=== PATIENT | male | born 1990 | race Caucasian/White ===

== ENCOUNTER 2021-12-30 14:54 | Emergency (ER) | payer OTHER, SELFPAY ==
[2021-12-30 15:09] VITALS: BP 142/89; PULSE 80; TEMP 36.7; O2SAT 98
[2021-12-30 15:12] VITALS: BP 142/89; PULSE 88; RESP 16; TEMP 36.7; O2SAT 98
[2021-12-30] MEDS: LORazepam 0.5 MG TAB 1.5 MG PO (15:45)
--- NOTE | 2021-12-30 15:47 | ED.GENADUL_ITS ---
Discharge Plan Disposition Patient Disposition: HOME Condition: Stable Discharge Details Clinical Impression: Anxiety Primary Care Provider: Unknown,Unknown ED Provider: Lucie Byrd Home Meds and New Rx's Prescriptions: No Action venlafaxine [Effexor XR] 150 mg Capsule,Extended Release 24hr 150 mg PO DAILY bupropion HCl [Wellbutrin XL] 150 mg Tablet Extended Release 24 Hr 150 mg PO DAILY Discharge Instructions Instructions: Lorazepam (By mouth), Anxiety (ED) Additional Instructions: Take one tablet every 8 hours as needed for anxiety. Do not drive or operate heavy machinery while taking this medication. Keep your appointment tomorrow as previously scheduled. Discharge Data Discharge Date/Time-TO BE ENTERED AT DEPARTURE: 12/30/21 16:13 Medical Decision Making 31-year-old male presents to the ER with a chief complaint of anxiety. He denies any SI or HI. He does take Wellbutrin and Effexor. He reports he has a PCP appointment tomorrow. 0.5 mg of lorazepam was given to the patient x3 tablets as needed for anxiety and panic attacks. He denies any other symptoms no abdominal pain no chest pain or shortness of breath no nausea vomiting diarrhea no fever. This text was generated using [employer] system, please disregard any oddities of phrase or misspellings. HPI General Mode of arrival: ambulatory . Date/Time Provider Initiated Documentation: 12/30/21 15:36 . Limitations to Documentation: no limitations . Information obtained by: patient, family, RN notes reviewed and old records reviewed . HPI Narrative: 31 year old male with hx of anxiety presents with increased Panic attacks, takes Wellbutrin and effexor. Denies HI or SI, no other c/o. Has PCP appt tomorrow. Related Data Home Medications Medication Instructions Recorded Confirmed bupropion HCl 150 mg 24 hr tablet, 150 mg PO DAILY 12/30/21 12/30/21 extended release (Wellbutrin XL) venlafaxine 150 mg 150 mg PO DAILY 12/30/21 12/30/21 capsule,extended release 24 hr (Effexor XR) Allergies Allergy/AdvReac Type Severity Reaction Status Date / Time No Known Allergies Allergy Unverified 12/30/21 15:17 General Stated Complaint: Anxiety NICA: 3 Review of Systems All systems reviewed & are unremarkable except as noted in HPI and below Cardiovascular Cardiovascular: Denies chest pain Gastrointestinal Gastrointestinal: Denies abdominal pain, Denies diarrhea, Denies nausea and Denies vomiting Psychiatric Psychiatric: Reports as per HPI, Reports anxiety, Reports panic attacks, Denies homicidal ideation and Denies suicidal ideation PFSH All Active Problems Anxiety (Chronic) Social History Smoking/Tobacco Use Status: Current every day Tobacco Type: cigarettes Smoking risk assessment performed?: Yes Drug use: Daily Substance use type: marijuana Exam Narrative Exam Narrative: Constitutional: Alert and oriented x3. Appears stated age. Normal body habitus. Head: Normocephalic, no trauma. Eyes: Pupils PERRL, Red reflex noted, EOM's intact. Eyelids symmetrical without lesions, discharge, or swelling. ENT: Bilateral TM's WNL, External ear normal to inspection, no mastoid TTP, swelling, or erythema, Nasal turbinates WNL, no nasal discharge. Normal dentition, Posterior pharynx WNL, no exudate. Chest: RRR, Normal S1, S2, distal pulses intact. Resp: Lungs clear to auscultation bilaterally, no wheezes, rales, or rhonchi. Abdomen: Soft, non-distended, Normoactive bowel sounds all 4 quads. Musculoskeletal: Normal gait, 5/5 strength to all four extremities. Skin: No suspicious rashes or lesions. Capillary refill less than 2 sec. Neurologic: Cranial nerves II-XII intact. Alert and oriented x 3. Motor: No deficits noted. Sensory: Intact bilaterally all 4 extremities. Reflexes: DTR's intact bilaterally.. Hematologic/Lymphatic: No ecchymosis, no lymphadenopathy. Psych Appearance: well kempt Mental Status: mental status grossly normal Speech and Movement: speech and movement normal Affect: normal affect Attitude: cooperative Thought Process: normal Thought Content: normal Insight: insight good Judgment: judgment good Course Vital Signs Vital signs: Vital Signs Temperature 36.7 C 12/30/21 15:09 Pulse 80 12/30/21 15:09 Blood Pressure 142/89 H 12/30/21 15:09 Pulse Oximetry 98 12/30/21 15:09 Temperature 36.7 C 12/30/21 15:12 Temperature Source Oral 12/30/21 15:12 Pulse 88 12/30/21 15:12 Respiratory Rate 16 12/30/21 15:12 Respiratory Effort 12/30/21 15:12 Blood Pressure 142/89 H 12/30/21 15:12 Blood Pressure Position Sitting 12/30/21 15:12 Pulse Oximetry 98 12/30/21 15:12 Oxygen Delivery Method Room Air 12/30/21 15:12 Oxygen Flow Rate 0 12/30/21 15:12 Pain Level 0 12/30/21 15:12
[2021-12-30 18:00] VITALS: RESP 16
== END 2021-12-30 16:13 | disposition home or self-care (01) ==
PROVIDERS: Emergency Provider Registered Nurse Emergency
DX: F41.9 Anxiety disorder, unspecified (principal)
CPT/HCPCS: 99283

== ENCOUNTER 2022-01-24 12:19 | Emergency (ER) | payer OTHER, SELFPAY ==
[2022-01-24] VITALS (13 sets, daily range): BP systolic 103–153; BP diastolic 48–87; PULSE 58–87; RESP 10–22; TEMP 36.6; O2SAT 97–100
--- NOTE | 2022-01-24 12:30 | RT.EKG_ITS ---
APPROVED REPORT Exam: Resting ECG Reason for Exam: CHEST PAIN Patient Location: E HR:75 bpm ECG Measurements Heart Rate 75 AXIS [place] 149 P 54 QRSd 95 QRS 26 QT 366 T 54 QTc 408 Conclusion Sinus rhythm...normal P axis, V-rate 60- 99
[2022-01-24 13:26] LABS: Abs Immature Grans 0.03 10^3/uL (0.0-0.06); Absolute Basophil Count 0.03 10^3/uL (0.0-0.2); Absolute Eosinophil Count 0.13 10^3/uL (0.0-0.7); Absolute Lymphocyte Count 1.74 10^3/uL (1.2-3.4); Absolute Monocyte Count 0.49 10^3/uL (0.1-0.8); Absolute Neutrophil Count 5.02 10^3/uL (1.2-6.7); Basophils % 0.4; Eosinophils % 1.7; HCT 40.1 % (40.0-50.0); HGB 13.3 g/dL (13.5-17.5); Immature Grans % 0.4; Lymphocytes % 23.4; MCH 29.9 pg (27.0-33.0); MCHC 33.2 % (32.0-36.0); MCV 90 fL (80-95); MPV 10.8 fL (8.0-11.0); Monocytes % 6.6; Neutrophils % 67.5; Platelet Count 219 10^3/uL (130-400); RBC 4.45 10^6/uL (4.36-5.78); RDW-SD 43.2 fL; WBC 7.44 10^3/uL (4.4-10.8)
[2022-01-24] MEDS: Ketorolac 15 MG/ML VIAL IVP (13:27)
[2022-01-24 13:45] LABS: ALT 25 U/L (16-63); AST 14 U/L (15-37); Albumin 3.8 g/dL (3.4-5.0); Alkaline Phosphatase 66 U/L (46-116); Anion Gap 9.2 mmol/L (3-11); BUN 12 mg/dL (7-18); Bilirubin, Total 0.3 mg/dL (0.2-1.0); CO2 29.8 mmol/L (21.0-32.0); CREATININE 0.9 mg/dL (0.70-1.30); Calcium 8.8 mg/dL (8.5-10.1); Chloride 106 mmol/L (98-107); Glucose 109 mg/dL (74-106); Potassium 3.1 mmol/L (3.5-5.1); Sodium 145 mmol/L (136-145); Total Protein 7.1 g/dL (6.4-8.2); Troponin I < 50 ng/L (<or=60)
[2022-01-24 14:14] LABS: D-Dimer 145 ng/mlFEU (<500)
--- NOTE | 2022-01-24 14:23 | ED.GENADUL_ITS ---
Discharge Plan Disposition Patient Disposition: HOME Condition: Stable Discharge Details Clinical Impression: Atypical chest pain Primary Care Provider: Unknown,Unknown ED Provider: Raegan Méndez Home Meds and New Rx's Prescriptions: New lorazepam [Ativan] 1 mg tablet 1 mg PO TID PRNQty: 7 0RF Continued venlafaxine [Effexor XR] 150 mg Capsule,Extended Release 24hr 150 mg PO DAILY bupropion HCl [Wellbutrin XL] 150 mg Tablet Extended Release 24 Hr 150 mg PO DAILY Discharge Instructions Instructions: Chest Pain (ED) Additional Instructions: Take ibuprofen and Tylenol as needed for pain I am giving you a small amount of Ativan, do not drive for 8 hours after taking this medication and with that it is addictive Do not combine with alcohol Follow-up with your primary care physician and your psychiatrist Return earlier should you have new or worsening complaints Discharge Data Discharge Date/Time-TO BE ENTERED AT DEPARTURE: 01/24/22 14:51 Medical Decision Making Patient with greater than 3 hours of symptoms upon arrival, 1 troponin is reasonable, high-sensitivity troponin EKG is not show evidence of acute abnormality, diagnostic labs are reassuring D-dimer is negative Patient feeling improvement after Toradol administration Will give him several tabs of Ativan for home Encouraged to follow-up with PCP on Thursday and to return immediately with new or worsening complaints Have a psychiatrist, will follow up Medical Records Medical records reviewed: Yes I reviewed the patient's medical records. Lab Data Lab results reviewed: Yes I reviewed the patient's lab results. HPI General Date/Time Provider Initiated Documentation: 01/24/22 12:30 . HPI Narrative: This 31-year-old male with history of anxiety presents with reports of chest pain for the past several hours. He states that started at work. He states he is under a lot of stress and he has had similar episodes in the past. He is taking his anxiety medication. He denies any suicidal or homicidal ideation. He does not use any illicit substances. He specifically denies history of cocaine or IV drug abuse. Denies any abdominal pain, nausea or vomiting. He states that the pain is intermittent is on the right side. He denies any exacerbating or alleviating factors. Denies any shortness of breath associated. Denies any history of hypertension or hyperlipidemia. Smokes tobacco. Father did have OH at 55, but patient has no known coronary artery disease history or risk aside from tobacco use. Denies exertional component to symptoms. Without resting symptoms began. Denies known or lacerating or alleviating factors. Related Data Home Medications Medication Instructions Recorded Confirmed bupropion HCl 150 mg 24 hr tablet, 150 mg PO DAILY 12/30/21 01/28/22 extended release (Wellbutrin XL) venlafaxine 150 mg 150 mg PO DAILY 12/30/21 01/28/22 capsule,extended release 24 hr (Effexor XR) lorazepam 1 mg tablet (Ativan) 1 mg PO TID PRN #7 tabs 01/24/22 01/28/22 Previous Rx's Medication Instructions Recorded lorazepam 1 mg tablet (Ativan) 1 mg PO TID PRN #7 tabs 01/24/22 Allergies Allergy/AdvReac Type Severity Reaction Status Date / Time No Known Allergies Allergy Unverified 01/24/22 12:45 General Stated Complaint: Chest Pain NICA: 3 Review of Systems All systems reviewed & are unremarkable except as noted in HPI and below PFSH All Active Problems (Updated 01/28/22 @ 12:27 by Pan Chang MD) Anxiety (Chronic) Atypical chest pain (Acute) Chest pain (Acute) Social History Smoking/Tobacco Use Status: Current every day Tobacco Type: cigarettes Smoking risk assessment performed?: Yes Alcohol Intake: never Drug use: Daily Substance use type: marijuana Do you feel safe at home: Yes Do you feel safe in your relationship?: Yes Exam Const General: cooperative, comfortable and no acute distress Eyes Sclera: sclerae normal Resp Effort & Inspection: normal respiratory effort Cardio Rate: regular rate Rhythm: regular rhythm Heart Sounds: murmur GI Inspection: normal to inspection Skin General skin exam: no rashes or lesions noted Neuro General: patient alert and patient oriented x3 Extrem Other: no calf swelling or tenderness, distal pulses intact Course Vital Signs Vital signs: Vital Signs Temperature 36.6 C 01/24/22 12:42 Pulse 75 01/24/22 12:42 Respiratory Rate 18 01/24/22 12:42 Blood Pressure 153/87 H 01/24/22 12:42 Pulse Oximetry 99 01/24/22 12:42 Temperature 36.6 C 01/24/22 12:42 Temperature Source Temporal Artery Scan 01/24/22 12:42 Pulse 75 01/24/22 12:42 Respiratory Rate 18 01/24/22 12:42 Respiratory Effort Non-Labored 01/24/22 12:46 Blood Pressure 153/87 H 01/24/22 12:42 Blood Pressure Position Sitting 01/24/22 12:42 Pulse Oximetry 99 01/24/22 12:42 Oxygen Delivery Method Room Air 01/24/22 12:42 Oxygen Flow Rate 0 01/24/22 12:42 Lab/Test Results Lab/Test Results: Laboratory Tests Range/Units 01/24/22 01/24/22 01/24/22 12:54 12:54 13:32 WBC (4.4-10.8) 10^3/uL 7.44 RBC (4.36-5.78) 10^6/uL 4.45 Hgb (13.5-17.5) g/dL 13.3 L Hct (40.0-50.0) % 40.1 MCV (80-95) fL 90 MCH (27.0-33.0) pg 29.9 MCHC (32.0-36.0) % 33.2 RDW (11.8-14.1) % 13.0 Plt Count (130-400) 10^3/uL 219 MPV (8.0-11.0) fL 10.8 Immature Gran % 0.4 Neutrophils % 67.5 Lymphocytes % 23.4 Monocytes % 6.6 Eosinophils % 1.7 Basophils % 0.4 Nucleated RBC % (0.0-0.3) % 0.0 Absolute Neutrophils (1.2-6.7) 10^3/uL 5.02 Absolute Lymphocytes (1.2-3.4) 10^3/uL 1.74 Absolute Monocytes (0.1-0.8) 10^3/uL 0.49 Absolute Eosinophils (0.0-0.7) 10^3/uL 0.13 Absolute Basophils (0.0-0.2) 10^3/uL 0.03 D-Dimer (<500) ng/mlFEU 145 Sodium (136-145) mmol/L 145 Potassium (3.5-5.1) mmol/L 3.1 L Chloride (98-107) mmol/L 106 Carbon Dioxide (21.0-32.0) mmol/L 29.8 Anion Gap (3-11) mmol/L 9.2 BUN (7-18) mg/dL 12 Creatinine (0.70-1.30) mg/dL 0.9 Estimated GFR/1.73 m2 (mL/min/1.73m2) >= 60.00 Glucose (74-106) mg/dL 109 H Calcium (8.5-10.1) mg/dL 8.8 Total Bilirubin (0.2-1.0) mg/dL 0.3 AST (15-37) U/L 14 L ALT (16-63) U/L 25 Alkaline Phosphatase (46-116) U/L 66 Troponin I (<or=60) ng/L < 50 Total Protein (6.4-8.2) g/dL 7.1 Albumin (3.4-5.0) g/dL 3.8
== END 2022-01-24 14:51 | disposition home or self-care (01) ==
PROVIDERS: Emergency Provider Physician Assistant
DX: R07.89 Other chest pain (principal); F17.210 Nicotine dependence, cigarettes, uncomplicated
CPT/HCPCS: 36415; 80053; 93005; 96374; 99284; 84484; 85025; 85379; 93010; J1885

== ENCOUNTER 2022-01-28 09:35 | Emergency (ER) | payer OTHER, SELFPAY ==
[2022-01-28] VITALS (8 sets, daily range): BP systolic 124–153; BP diastolic 61–94; PULSE 61–78; RESP 13–18; TEMP 36.3; O2SAT 97–100
--- NOTE | 2022-01-28 09:30 | RT.EKG_ITS ---
APPROVED REPORT Exam: Resting ECG Reason for Exam: chest pain Patient Location: E HR:85 bpm ECG Measurements Heart Rate 85 AXIS [place] 136 P 69 QRSd 92 QRS 36 QT 345 T 61 QTc 410 Conclusion Sinus rhythm...normal P axis, V-rate 60- 99 ST elev, probable normal early repol pattern...ST elevation, age<55
--- NOTE | 2022-01-28 09:53 | ED.GENADUL_ITS ---
Discharge Plan Disposition Patient Disposition: HOME Condition: Stable Discharge Details Clinical Impression: Chest pain Primary Care Provider: Unknown,Unknown ED Provider: Pan Chang Home Meds and New Rx's Prescriptions: Continued venlafaxine [Effexor XR] 150 mg Capsule,Extended Release 24hr 150 mg PO DAILY bupropion HCl [Wellbutrin XL] 150 mg Tablet Extended Release 24 Hr 150 mg PO DAILY lorazepam [Ativan] 1 mg tablet 1 mg PO TID PRNQty: 7 0RF Discharge Instructions Instructions: Chest Pain (ED) Additional Instructions: your blood work and ultrasound did not show concerning findings at this time it is important to follow up with your primary care provider and discuss stress testing if you feel more ill, have difficulty breathing or severe worsening pain return to the emergency department Stand Alone Forms: Work Release Medical Decision Making 31 yo male with hx of anxiety and smoking comes in with anterior chest pain radiating to the left neck starting around 9am this morning 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 HE denies any heavy lifting or falls, no fevers, no dyspnea, can't think of anything that makes the pain better or worse. He was seen here 4 days ago for chest pain but states he also was having anxiety at that time and doesn't believe he is anxious now. He is in no distress on exam speaking in full sentences. He has no diaphoresis, soft nontender abdomen, no rashes or lesions of the chest wall, clear lungs no murmurs. He denies any ivdu or recreational drug use other than marijuana and last used this 2 weeks ago. I suspect chest wall pain less likely pericarditis, will obtain ekg and troponin, heart score is 2 because he is a smoker and also family history of CAD. He is wells score low , will send d dimer to screen for pe. No tearing back pain so doubt dissection initial labs and pocus unremarable, normal apparing EF and no pericardial effusion. will obtain delta troponin delta troponin and ecg unremarkable, he remains asymptomatic at this time. Discussed with pt and given low heart score feel outpatient evaluation indicated and doesn't require hospitalization. Advised to see pcp carl and return precautions given Differential Diagnosis Differential Diagnosis: chest wall pain, acs Medical Records Medical records reviewed: Yes I reviewed the patient's medical records. Lab Data Lab results reviewed: Yes I reviewed the patient's lab results. ECG Data Attestation: I personally reviewed and interpreted this ECG (s) as follows: Prior ECG tracings: available for review Interpretation: sinus rhythm, rate of 85, no acute st t wave ischemic findings 2nd ekg sinus rhythm, rate of 79, no acute st t wave ichemic findings HPI General Mode of arrival: ambulatory . Date/Time Provider Initiated Documentation: 01/28/22 09:35 . Limitations to Documentation: no limitations . Information obtained by: patient . History of Present Illness 31 year old M presents to the emergency department with the chief complaint of chest pain, described as moderate, and is localized to the chest. Patient neck. Patient started experiencing this hour(s) (1) and it has been constant. No relieving factors improve symptom(s), No exacerbating factors reported . Patient notes no other symptoms.. Patient did receive the following treatments prior to arrival, none Related Data Home Medications Medication Instructions Recorded Confirmed bupropion HCl 150 mg 24 hr tablet, 150 mg PO DAILY 12/30/21 01/28/22 extended release (Wellbutrin XL) venlafaxine 150 mg 150 mg PO DAILY 12/30/21 01/28/22 capsule,extended release 24 hr (Effexor XR) lorazepam 1 mg tablet (Ativan) 1 mg PO TID PRN #7 tabs 01/24/22 01/28/22 Previous Rx's Medication Instructions Recorded lorazepam 1 mg tablet (Ativan) 1 mg PO TID PRN #7 tabs 01/24/22 Allergies Allergy/AdvReac Type Severity Reaction Status Date / Time No Known Allergies Allergy Unverified 01/24/22 12:45 General Stated Complaint: Chest Pain NICA: 3 Review of Systems All systems reviewed & are unremarkable except as noted in HPI and below Constitutional Constitutional: Denies chills, Denies fever(s) and Denies weakness Cardiovascular Cardiovascular: Denies dyspnea Respiratory Respiratory: Denies cough and Denies dyspnea Gastrointestinal Gastrointestinal: Denies abdominal pain, Denies nausea and Denies vomiting Musculoskeletal Musculoskeletal: Denies joint swelling Integumentary/Breasts Skin/Breast: Denies rash Neurologic Neurologic: Denies weakness PFSH All Active Problems (Updated 01/28/22 @ 12:27 by Pan Chang MD) Anxiety (Chronic) Atypical chest pain (Acute) Chest pain (Acute) Social History Smoking/Tobacco Use Status: Current every day Tobacco Type: cigarettes Smoking risk assessment performed?: Yes Alcohol Intake: never Drug use: Daily Substance use type: marijuana Do you feel safe at home: Yes Do you feel safe in your relationship?: Yes Exam Const General: no acute distress Orientation: alert HENMT Head: normal to inspection Ears: external ears normal General nose exam: external nose normal Mouth: moist mucous membranes Eyes General: appearance normal, both eyes and all related structures Neck Neck: normal visual inspection Chest Chest: normal inspection of the chest, no crepitus and no tenderness Resp Effort & Inspection: normal respiratory effort and able to speak in complete sentences Cardio Rate: regular rate GI Palpation: soft and nontender Skin General skin exam: no rashes or lesions noted Neuro General: patient alert and patient oriented x3 Extrem General: normal to inspection Psych Mental Status: mental status grossly normal Course Vital Signs Vital signs: Vital Signs Temperature 36.3 C L 01/28/22 09:38 Pulse 78 01/28/22 09:38 Respiratory Rate 18 01/28/22 09:38 Blood Pressure 144/88 H 01/28/22 09:38 Pulse Oximetry 97 01/28/22 09:38 Temperature 36.3 C L 01/28/22 09:38 Temperature Source Temporal Artery Scan 01/28/22 09:38 Pulse 78 01/28/22 09:38 Respiratory Rate 18 01/28/22 09:38 Respiratory Effort Non-Labored 01/28/22 09:41 Blood Pressure 144/88 H 01/28/22 09:38 Blood Pressure Position Sitting 01/28/22 09:38 Pulse Oximetry 97 01/28/22 09:38 Oxygen Delivery Method Room Air 01/28/22 09:38 Oxygen Flow Rate 0 01/28/22 09:38 Pain Level 2 01/28/22 09:38 POCUS Exam (ED) Limited Cardiac Exam DATE OF EXAM: 01/28/22 TIME OF EXAM: 11:14 PROVIDER THAT PERFORMED THE STUDY: Pan Chang IS THIS A REPEAT STUDY: no REASON FOR EXAM: Chest pain VISUALIZED STRUCTURES: Four Chambers VIEW OBTAINED: Parasternal long-axis (and subxiphoid) PERTINENT FINDINGS/IMPRESSION: No LV dysfunction and No pericardial effusion Exam complete
[2022-01-28 10:03] LABS: Abs Immature Grans 0.01 10^3/uL (0.0-0.06); Absolute Basophil Count 0.04 10^3/uL (0.0-0.2); Absolute Eosinophil Count 0.14 10^3/uL (0.0-0.7); Absolute Lymphocyte Count 1.75 10^3/uL (1.2-3.4); Absolute Monocyte Count 0.43 10^3/uL (0.1-0.8); Absolute Neutrophil Count 4.43 10^3/uL (1.2-6.7); Basophils % 0.6; Eosinophils % 2.1; HCT 40.8 % (40.0-50.0); HGB 13.6 g/dL (13.5-17.5); Immature Grans % 0.1; Lymphocytes % 25.7; MCH 29.8 pg (27.0-33.0); MCHC 33.3 % (32.0-36.0); MCV 90 fL (80-95); MPV 10.6 fL (8.0-11.0); Monocytes % 6.3; Neutrophils % 65.2; Platelet Count 243 10^3/uL (130-400); RBC 4.56 10^6/uL (4.36-5.78); RDW 13.2 % (11.8-14.1); RDW-SD 43.4 fL
[2022-01-28 10:20] LABS: ALT 27 U/L (16-63); AST 20 U/L (15-37); Albumin 3.8 g/dL (3.4-5.0); Alkaline Phosphatase 69 U/L (46-116); Anion Gap 6.2 mmol/L (3-11); BUN 14 mg/dL (7-18); Bilirubin, Total 0.4 mg/dL (0.2-1.0); CO2 30.8 mmol/L (21.0-32.0); CREATININE 0.9 mg/dL (0.70-1.30); Calcium 8.8 mg/dL (8.5-10.1); Chloride 105 mmol/L (98-107); Glucose 118 mg/dL (74-106); Magnesium 1.9 mg/dL (1.8-2.4); Potassium 3.9 mmol/L (3.5-5.1); Sodium 142 mmol/L (136-145); Total Protein 7.3 g/dL (6.4-8.2); Troponin I < 50 ng/L (<or=60)
--- NOTE | 2022-01-28 10:30 | RT.EKG_ITS ---
APPROVED REPORT Exam: Resting ECG Reason for Exam: chest pain Patient Location: E HR:79 bpm ECG Measurements Heart Rate 79 AXIS [place] 151 P 59 QRSd 82 QRS 16 QT 352 T 58 QTc 405 Conclusion Sinus rhythm...normal P axis, V-rate 60- 99 ST elev, probable normal early repol pattern...ST elevation, age<55 no acute changes from previous ekg
[2022-01-28 11:26] LABS: D-Dimer 210 ng/mlFEU (<500)
[2022-01-28 13:18] LABS: Troponin I < 50 ng/L (<or=60)
== END 2022-01-28 13:53 | disposition home or self-care (01) ==
PROVIDERS: Emergency Provider Emergency Medicine
DX: R07.9 Chest pain, unspecified (principal); F17.210 Nicotine dependence, cigarettes, uncomplicated
CPT/HCPCS: 36415; 80053; 93005; 93308; 99283; 83735; 84484; 85025; 85379; 93010; 99282

== ENCOUNTER 2022-02-10 15:13 | Emergency (ER) | payer OTHER, SELFPAY ==
[2022-02-10 15:20] VITALS: BP 154/96; PULSE 96; RESP 16; TEMP 36.8; O2SAT 98
[2022-02-10 15:23] VITALS: RESP 16
--- NOTE | 2022-02-10 16:51 | W.ED.GENAD ---
Discharge Plan Disposition Patient Disposition: HOME Condition: Stable Discharge Details Clinical Impression: Anxiety, Panic attack Primary Care Provider: Chalo Guerin ED Provider: Noble Mojica Home Meds and New Rx's Prescriptions: Continued venlafaxine [Effexor XR] 150 mg Capsule,Extended Release 24hr 75 mg PO DAILY bupropion HCl [Wellbutrin XL] 150 mg Tablet Extended Release 24 Hr 150 mg PO DAILY lorazepam [Ativan] 1 mg tablet 1 mg PO TID PRNQty: 7 0RF Discharge Instructions Instructions: Anxiety (ED), Panic Attack (ED) Additional Instructions: After speaking with mental health the plan is that you will be safety planned home tonight and hopefully get placement in a care bed tomorrow. Please watch for new or worsening symptoms and return to the ER for any concerns. Lastly, follow instructions given to you by the mental health team. Discharge Data Discharge Date/Time-TO BE ENTERED AT DEPARTURE: 02/10/22 17:18 Medical Decision Making 31-year-old gentleman with ongoing anxiety and panic attacks, taking his medication as prescribed, presents requesting voluntary placement at [facility]. Denies any SI or HI, reports feeling safe. He has no acute medical concerns or complaints. Plan is to request a mental health screening. I did contact mental health, they stated they already evaluated him earlier today. They have already been in contact with [facility] and are trying to get him set there but because of his insurance he needs a 3-day qualifying stay previously to the admission. Patient left [facility] and they report that his time now goes back to 0. They did offer him a crisis bed but he declined. Mental health evaluation completed. Please see their note. He does not wish to stay at the hospital while waiting for a bed to open up at [facility]. Instead will be safety planned home and they will try to get him into a care bed tomorrow when one opens. Standard discharge and return precautions were provided. Patient understands, is agreeable to this plan, and has no additional questions or concerns upon discharge. This documentation was generated using [employer] system, please disregard any oddities of phrase or misspellings. Medical Records Medical records reviewed: Yes I reviewed the patient's medical records. HPI General Mode of arrival: ambulatory. Date/Time Provider Initiated Documentation: 02/10/22 15:32. Limitations to Documentation: no limitations. Information obtained by: patient. HPI Narrative: This is a 31-year-old gentleman with past medical history of anxiety, panic attacks, presenting to the ER requesting admission to [facility]. Patient states that he went to [facility] on Thursday and then again today to get admitted to [facility] voluntarily as he was waiting too long and subsequently left. Patient denies any acute medical concerns or complaints. He reports now he feels slightly anxious. No obvious trigger. He does admit to smoking cigarettes but denies alcohol or drug abuse. Denies recent illness or trauma. He feels safe, denies any SI or HI. Related Data Home Medications Medication Instructions Recorded Confirmed bupropion HCl 150 mg 24 hr tablet, 150 mg PO DAILY 12/30/21 02/10/22 extended release (Wellbutrin XL) venlafaxine 150 mg 75 mg PO DAILY 12/30/21 02/10/22 capsule,extended release 24 hr (Effexor XR) lorazepam 1 mg tablet (Ativan) 1 mg PO TID PRN #7 tabs 01/24/22 02/10/22 Previous Rx's Medication Instructions Recorded lorazepam 1 mg tablet (Ativan) 1 mg PO TID PRN #7 tabs 01/24/22 Allergies Allergy/AdvReac Type Severity Reaction Status Date / Time No Known Allergies Allergy Unverified 02/10/22 15:26 General Stated Complaint: Anxiety NICA: 5 Review of Systems Constitutional Constitutional: Denies fever(s) and Denies headache(s) ENT Ears, Nose, Mouth, and Throat: Denies headache(s) Cardiovascular Cardiovascular: Denies chest pain and Denies dyspnea Respiratory Respiratory: Denies cough and Denies dyspnea Gastrointestinal Gastrointestinal: Denies abdominal pain, Denies nausea and Denies vomiting Integumentary/Breasts Skin/Breast: Denies rash Neurologic Neurologic: Denies headache(s) Psychiatric Psychiatric: Reports anxiety, Denies homicidal ideation and Denies suicidal ideation PFSH All Active Problems Atypical chest pain (Acute) Chest pain (Acute) Anxiety (Chronic) Panic attack (Acute) Social History Smoking/Tobacco Use Status: Current every day Tobacco Type: cigarettes Smoking risk assessment performed?: Yes Alcohol Intake: never Drug use: Current Sobriety Substance use type: does not use Details: Just stopped smoking marijuana two weeks ago Do you feel safe at home: Yes Do you feel safe in your relationship?: Yes Exam Const General: cooperative, healthy appearing, comfortable and no acute distress Orientation: alert, awake and oriented x3 HENMT Head: normal to inspection, normocephalic and atraumatic Face and sinus: normal facial exam Mouth: moist mucous membranes Eyes General: appearance normal, both eyes and all related structures Conjunctivae: conjunctivae normal Neck Neck: normal visual inspection, trachea midline and supple Resp Effort & Inspection: normal respiratory effort and able to speak in complete sentences Auscultation: clear to auscultation bilaterally Cardio Rate: regular rate Rhythm: regular rhythm GI Palpation: soft and nontender Back/Spine/Pelvis Back: No back tenderness Skin General skin exam: no rashes or lesions noted Neuro General: patient alert, patient awake, moves all extremities and no focal motor deficits Cognition: normal cognition Speech: speech normal Gait: normal gait Motor: muscle tone normal throughout Sensory Exam: no sensory deficits noted Extrem General: normal to inspection, full ROM and capillary refill normal Psych Appearance: grossly normal Mental Status: mental status grossly normal Speech and Movement: speech and movement normal Mood: anxious mood Affect: normal affect Attitude: cooperative Thought Process: normal Thought Content: normal Insight: insight good Judgment: judgment good Course Vital Signs Vital signs: Vital Signs Temperature 36.8 C 02/10/22 15:20 Pulse 96 H 02/10/22 15:20 Respiratory Rate 16 02/10/22 15:20 Blood Pressure 154/96 H 02/10/22 15:20 Pulse Oximetry 98 02/10/22 15:20 Temperature 36.8 C 02/10/22 15:20 Temperature Source Temporal Artery Scan 02/10/22 15:20 Pulse 96 H 02/10/22 15:20 Respiratory Rate 16 02/10/22 15:23 Respiratory Effort Non-Labored 02/10/22 15:23 Respiratory Depth Normal 02/10/22 15:23 Respiratory Pattern Normal 02/10/22 15:23 Blood Pressure 154/96 H 02/10/22 15:20 Blood Pressure Position Sitting 02/10/22 15:20 Pulse Oximetry 98 02/10/22 15:20 Oxygen Delivery Method Room Air 02/10/22 15:20 Oxygen Flow Rate 0 02/10/22 15:20 Pain Level 0 02/10/22 15:20 PAWSS Have you Been Recently Intoxicated or Drunk Within the Last 30 days?: No Have you Ever Experienced Previous Episodes of Alcohol Withdrawal?: No Have you ever Experienced Withdrawal Seizures?: No Have you ever Experienced Delirium Tremens(DT)s?: No Have you ever undergone Alcohol Rehabilitation Treatment (i.e, inpt ot outpatient treatment programs)?: No Have you ever Experienced Blackouts?: No Have you ever Combined Alcohol with other Downers within the last 90 days?: No Have you ever Combined Alcohol with any other Substance of Abuse during the last 90 days?: No Result: 0
--- NOTE | 2022-02-11 10:53 | PDOC.MHCN ---
Date of service: 02/11/22 Time of Service: 16:30 Mental Health Emergency Note Release [facility] release signed:: Yes Reason for Visit Client came from [facility] due to feeling like he was getting the run around. Client is seeking voluntary treatment. In the last 2 weeks has the pt presented for ES prior to today?: Yes, presented at [facility] ED and ED at another facility Client Information Client is: Adult Outpatient Non Suicidal Self Injury Current: No History: No Safety Risk/Harm to Self or Others Current Ideation to Harm Self or Others: No Risk: Does risk to harm exist?: No Risk: Low Risk Duty to warn indicated: No Asssessment/Mental Status Appearance: Unremarkable Attitude: Cooperative Behavior: Unremarkable Speech: Normal Affect: Cogruent with mood Mood: Stressed and Anxious Thought process: Unremarkable Hallucinations: No Delusions: No Attention: Unremarkable Perception: Not impaired Orientation: Fully orientated Memory: Intact Insight: Fair Judgement: Poor Neurovegetative Symptoms Sleep: No change Appetitie: No change Interests: No change Energy: No change Libido: Not applicable Substance Use: Do you use nicotine?: No Have you used substances in the last 7 days?: No Additional Issues: Assaultive/Threatening Behavior: No Medical Concerns: No Client engaged in active self harm w/weapon: No Threatening to run away: No Voluntarily presenting for services: No Domestic violence is a concern: No Extreme Psychosis or extreme behavior is present: No Impression Client presented to [facility] after leaving [facility] hoping to speed up the process for inpatient treatment. After discussing alternatives to inpatient treatment with this client, we decided a crisis bed would be the most beneficial for him. Client is not actively endorsing SI/HI/NSSI. Client is experiencing increased anxiety and needs a higher level of care than a few appointments. A crisis bed referral has been put in. Resources Reosurces reviewed and given:: Crisis Bed ([facility] ) and [facility] (Client will complete check in calls with [facility] ES.) Plan/Disposition Recommended Disposition: Crisis bed, (Referral is in.) facility contacted. Status of Crisis Bed acceptance: Pending review. Plan: Client is going to be discharged from [facility] to home on a safety plan, the safety plan was emailed to Sue so the hospital can have a copy and then provide the client with a copy upon discharge. Client will wait for a crisis bed from home and keep in contact with [facility] ES. Person reported agreement to plan: Yes Reports/communication Outcome discussed with: ED/Personnel
== END 2022-02-10 17:18 | disposition home or self-care (01) ==
PROVIDERS: Emergency Provider Physician Assistant; PCP Nurse Practitioner Family
DX: F41.0 Panic disorder [episodic paroxysmal anxiety] (principal); F17.210 Nicotine dependence, cigarettes, uncomplicated
CPT/HCPCS: 99283; 99282

== ENCOUNTER 2022-02-12 11:51 | Observation (INO) | payer OTHER, SELFPAY ==
[2022-02-12 11:58] VITALS: BP 184/98; PULSE 110; RESP 25; O2SAT 100
--- NOTE | 2022-02-12 12:04 | ED.GENADUL_ITS ---
Discharge Plan Disposition Patient Disposition: STILL A PATIENT Condition: Stable Discharge Details Chief Complaint: Anxiety Clinical Impression: Depression with suicidal ideation, Paranoia Primary Care Provider: Chalo Guerin ED Provider: Noble Mojica Home Meds and New Rx's Prescriptions: No Action venlafaxine [Effexor XR] 150 mg Capsule,Extended Release 24hr 75 mg PO DAILY bupropion HCl [Wellbutrin XL] 150 mg Tablet Extended Release 24 Hr 150 mg PO DAILY lorazepam [Ativan] 1 mg tablet 1 mg PO TID PRNQty: 7 0RF Medical Decision Making 31-year-old gentleman with [place] history of anxiety, panic attacks, awaiting placement to a care bed after an evaluation on Thursday presents for worsening symptoms and now with vague SI, thinking of driving a car into a telephone pole. Using the smart medical clearance I do not believe that additional laboratory values are required. We will obtain a COVID test. Denies recent illness or trauma. We will request a mental health evaluation as well as placed interim care plan and request a CPSO. Mental health evaluation completed, he would be a voluntary placement. Patient was given his daily routine medication which she did not take today as well as a nicotine patch. Will await to hear from [facility] whether or not they can find placement today. If placement cannot be found then we should consider admission to our facility while awaiting placement. [facility] did state that if the patient was he eloped from the ER they would like to be called and they will perform the necessary paperwork to make him involuntary as he does seem to be decompensating over the past few days. Patient has remained calm and cooperative throughout his ER visit This documentation was generated using [employer] dictation system, please disregard any oddities of phrase or misspellings. Medical Records Medical records reviewed: Yes I reviewed the patient's medical records. Lab Data Lab results reviewed: Yes I reviewed the patient's lab results. Labs: Laboratory Tests Range/Units 02/12/22 12:35 COVID-19 Source Nasal/Nares SARS-CoV-2 (PCR) (Negative) Negative HPI General Mode of arrival: ambulatory . Date/Time Provider Initiated Documentation: 02/12/22 12:03 . Limitations to Documentation: no limitations . Information obtained by: patient . HPI Narrative: This is a 31-year-old gentleman with past surgical history of anxiety and panic attacks, takes his medications as prescribed, who is now presenting to the ER reporting feeling paranoid about everything, denies any hallucinations, but reports SI, thoughts of driving his car into a telephone pole. Patient denies any obvious known trigger. He denies recent illness or trauma. He denies any alcohol or drug use. Patient states that he attempted to be placed to [place] last week at [facility] and subsequently 2 days ago at [facility] once again, and then came to our facility. After evaluation he went home with a safety plan and was hoping to seek a crisis bed but there is no crisis bed available. He states his symptoms worsened last but is unsure exactly why. Patient states that he has been dealing with some paranoia for quite some time but is typically able to deal with it on his own, now feels as though he cannot. He has no acute medical concerns such as headache, visual changes, fever, neck pain, chest pain, shortness of breath abdominal pain, nausea, vomiting Related Data Home Medications Medication Instructions Recorded Confirmed bupropion HCl 150 mg 24 hr tablet, 150 mg PO DAILY 12/30/21 02/12/22 extended release (Wellbutrin XL) venlafaxine 150 mg 75 mg PO DAILY 12/30/21 02/12/22 capsule,extended release 24 hr (Effexor XR) lorazepam 1 mg tablet (Ativan) 1 mg PO TID PRN #7 tabs 01/24/22 02/12/22 Previous Rx's Medication Instructions Recorded lorazepam 1 mg tablet (Ativan) 1 mg PO TID PRN #7 tabs 01/24/22 Allergies Allergy/AdvReac Type Severity Reaction Status Date / Time No Known Allergies Allergy Unverified 02/12/22 12:02 General Stated Complaint: Anxiety NICA: 3 Review of Systems Constitutional Constitutional: Denies fatigue, Denies fever(s), Denies headache(s) and Denies weakness Eyes Eyes: Denies change in vision ENT Ears, Nose, Mouth, and Throat: Denies headache(s) and Denies neck pain Cardiovascular Cardiovascular: Denies chest pain and Denies dyspnea Respiratory Respiratory: Denies cough and Denies dyspnea Gastrointestinal Gastrointestinal: Denies abdominal pain, Denies nausea and Denies vomiting Musculoskeletal Musculoskeletal: Denies myalgias and Denies neck pain Integumentary/Breasts Skin/Breast: Denies rash Neurologic Neurologic: Denies headache(s) and Denies weakness Psychiatric Psychiatric: Reports anxiety, Reports panic attacks, Reports paranoia, Denies homicidal ideation and Reports suicidal ideation Endocrine Endocrine: Denies fatigue PFSH All Active Problems (Updated 02/12/22 @ 15:15 by ZABRINA Lo) Atypical chest pain (Acute) Chest pain (Acute) Anxiety (Chronic) Panic attack (Acute) Depression with suicidal ideation (Acute) Paranoia (Acute) Social History Smoking/Tobacco Use Status: Current every day Tobacco Type: cigarettes Smoking risk assessment performed?: Yes Alcohol Intake: never Drug use: Current Sobriety Substance use type: does not use Details: Just stopped smoking marijuana two weeks ago Do you feel safe at home: Yes Do you feel safe in your relationship?: Yes Exam Const General: cooperative, healthy appearing, comfortable and anxious (Tearful) Orientation: alert, awake and oriented x3 HENMT Head: normal to inspection, normocephalic and atraumatic Face and sinus: normal facial exam Mouth: moist mucous membranes Eyes General: appearance normal, both eyes and all related structures Conjunctivae: conjunctivae normal Neck Neck: normal visual inspection, full ROM, no meningeal signs, trachea midline and supple Resp Effort & Inspection: normal respiratory effort and able to speak in complete sentences Auscultation: clear to auscultation bilaterally Cardio Rate: tachycardic (102) Rhythm: regular rhythm GI Palpation: soft and nontender Back/Spine/Pelvis Back: No back tenderness Skin General skin exam: no rashes or lesions noted Neuro General: patient alert, patient awake, patient oriented x3, moves all extremities and no focal motor deficits Cognition: normal cognition Speech: speech normal Gait: normal gait Motor: muscle tone normal throughout Sensory Exam: no sensory deficits noted Extrem General: normal to inspection Psych Appearance: grossly normal Mental Status: mental status grossly normal Speech and Movement: speech and movement normal Mood: anxious mood and dysthymic mood Affect: sad Attitude: cooperative Thought Process: normal Thought Content: no delusions, no hallucinations and suicidality Insight: fair Judgment: fair Course Vital Signs Vital signs: Vital Signs Pulse 110 H 02/12/22 11:58 Respiratory Rate 25 H 02/12/22 11:58 Blood Pressure 184/98 H 02/12/22 11:58 Pulse Oximetry 100 02/12/22 11:58 Temperature Source Temporal Artery Scan 02/12/22 11:58 Pulse 110 H 02/12/22 11:58 Respiratory Rate 25 H 02/12/22 11:58 Respiratory Effort 02/12/22 12:02 Blood Pressure 184/98 H 02/12/22 11:58 Blood Pressure Position Sitting 02/12/22 11:58 Pulse Oximetry 100 02/12/22 11:58 Oxygen Delivery Method Room Air 02/12/22 11:58 Oxygen Flow Rate 0 02/12/22 11:58 Pain Level 0 02/12/22 11:58
[2022-02-12 12:40] LABS: Source Nasal/Nares
[2022-02-12 13:24] LABS: COVID-19 PCR Negative (Negative)
[2022-02-12 13:31] VITALS: BP 142/94; PULSE 83; RESP 19; TEMP 37; O2SAT 97
--- NOTE | 2022-02-12 13:42 | PDOC.MHCN_ITS ---
Date of service: 02/12/22 Time of Service: 13:30 PHQ-9 Over the last 2 weeks, how often have you been bothered by any of the following problems? 1. Little interest or pleasure in doing things: more than half the days 2. Feeling down, depressed, or hopeless: several days 3. Trouble falling or staying asleep, or sleeping too much: more than half the days 4. Feeling tired or having little energy: more than half the days 5. Poor appetite or overeating: nearly every day 6. Feeling bad about yourself - or that you are a failure or have let yourself and your family down: nearly every day 7. Trouble concentrating on things, such as reading the newspaper or watching television: more than half the days 8. Moving or speaking so slowly that other people could have noticed? - Or the opposite - being so fidgety or restless that you have been moving around a lot more than usual: nearly every day 9. Thoughts that you would be better off or of hurting yourself in some way: nearly every day Total score: 21 If you checked off any problems, how difficult have these problems made it for you to do your work, take care of things at home, or get along with other people?: extremely difficult PHQ-9 Results: Positive Source: Developed by Drs. Diego Haywood, Serina Hills, Yvon William and colleagues, with an educational flip from [employer]. Suicide Severity Rate CSSRS Have you wished you were or wished you could go to sleep and not wake up?: Yes Have you actually had any thoughts of killing yourself?: Yes CSSRS2 Have you been thinking about how you might do this?: Yes Have you had these thoughts and had some intention of acting on them?: Yes Have you started to work out or worked out the details of how to kill yourself? Do you intend to carry out this plan?: Yes CSSRS3 Have you ever done anything, started to do anything or prepared to do anything to end your life?: Yes CSSRS4 Was this within the past three months?: Yes Screening Score Total Score: 8 Screening: Positive Mental Health Emergency Note Release [facility] release signed:: Yes Reason for Visit Actively endorsing SI and wants to seek treatment. In the last 2 weeks has the pt presented for ES prior to today?: Yes, presented at [facility] ED (Client was seen on Thursday02/07/22 and safety planned home.), ED at another facility (Client has also presented to [facility], but reports [facility] gives him the 'run around'.) and [facility] (Client has been completing check in calls from 02/07 until this morning when client reported he would be going to the ED.) Client Information Client is: Adult Outpatient Well Housed: Yes Non Suicidal Self Injury Current: No History: No Safety Risk/Harm to Self or Others Current Ideation to Harm Self or Others: Yes to self. (Client is reporting that last night 02/11/22 client could not get the thought of driving into a telephone pole out of his head and this morning he [place] the [place] thinking about slitting his wrists with a padded box sewer. ) Intent: yes, has intent. Plan: yes,has a plan. History of suicide attempt: yes,history of suicide attempt reported. Details of previous suicide attempt: When client was 23-23 years old he held a shot gun under his chin but did not pull the trigger. Risk: Does risk to harm exist?: yes. Access to means: Yes. Types of Means: Other weapons. Details: Client has access to means in the community but does not have access to means while in the ED. . Risk: High Risk Duty to warn indicated: No Asssessment/Mental Status Appearance: Unremarkable Attitude: Cooperative Behavior: Poor impulse control Speech: Soft and Slow Affect: Flat and Cogruent with mood Mood: Sad, Depressed and Anxious Thought process: Racing and Circumstational Hallucinations: No Delusions: No Attention: Unremarkable Perception: Not impaired Orientation: Fully orientated Memory: Intact Insight: Fair (Client is able to advocate for himself and for what he needs at this time. ) Judgement: Poor Neurovegetative Symptoms Sleep: Decrease Appetitie: Disordered (Client reports he eats one meal a day and has struggled with an eating disorder since the age of 54 years old.) Interests: Decrease Energy: No change Libido: Not applicable Substance Use: Do you use nicotine?: Yes Have you used substances in the last 7 days?: No Additional Issues: Assaultive/Threatening Behavior: No Medical Concerns: No Client engaged in active self harm w/weapon: Yes Threatening to run away: No Child reported abuse/neglect: No Voluntarily presenting for services: Yes Domestic violence is a concern: No Extreme Psychosis or extreme behavior is present: No Impression Client presented to the ED on 02/12, client is presenting with a flat affect appearing he is down, depressed, anxious, stressed, and hopeless. Client reports feeling similar and describes his mood to be changing between depressed, anxious, and paranoid. Client reports he is in a downward slope which can be witnessed by this clinician as they previously saw him. Client was tearful and visually upset during the assessment. Client reports he has been actively suicidal for the past 12-24 hours. Client stated several suicide plans; client reports this morning around 9am he was siting at the beach and had the thought to slit his wrist with a padded box sewer which was in his truck. Client reports last night he continuously thought about driving his car into a telephone pole. Client reports feeling worse than he did when he was last assessed by [facility]. Client is scared due to the thoughts he has been having which is why he presented to the ED. Client is seeking voluntary inpatient treatment to help him figure out what has been going on recently. Client reports he thinks he has schizophrenia and that scares him to think about. Client reports he is worried other people will think he wants to hurt them and scared that if he has schizophrenia. Client is also scared to ask the physician for medications to assist him in calming down due to him not wanting to be perceived as med seeking. Client reports he has not yet taken his anxiety medications today; this clinician told client they would inform their PA and get him his medications. Plan/Disposition Recommended Disposition: Hospitalization (Referrals will be sent when we recieve information from [facility].) facilities contacted. Plan: Client is waiting for voluntary placement, referrals will be sent once all collateral information is collected. This clinician asked ZABRINA Mojica to give this client his prescribed medications in addition to a nicotine pouch. Person reported agreement to plan: Yes Facilities contacted if Applicable [facility] (Needs a new referral.) Not accepted, Other (Waiting on referral.) [facility] (Needs a new referral.) Not accepted, (Waiting on referral.) Other [facility] (Needs a new referral.) Not accepted, (Waiting on referral.) [facility] Not [facility], (Waiting on referral.) Other Reports/communication Outcome discussed with: ED/Personnel (Disposition discussed with ZABRINA Mojica.)
[2022-02-12] MEDS: buPROPion-XL 150 MG TABCR PO (13:56)
[2022-02-12] MEDS: Nicotine 14 MG/24 HR PATCH TD (13:57)
[2022-02-12] MEDS: Venlafaxine 75 MG CAPCR PO (13:57)
--- NOTE | 2022-02-12 15:01 | CMSP_ITS ---
- If Service Date Differs Date of service: 02/12/22 Time of Service: 15:01 Care Management Safety Plan Status: Voluntary - Reason for Wait Reason for Wait: Inpatient Admission VOLUNTARY FOR INPATIENT PSYCHIATRIC STABILIZATION. Patient is appropriate in all interactions since arriving at [facility]; Pt has demonstrated appropriate coping and communication skills, has articulated his or her needs and concerns and is fully engaged during staff interactions. A decentralized huddle is done with Noble Mojica, ED provider, Maria A, nursing circus supervisor, JULIOCESAR Rouse, and BUNNY Brewer. Safety plan has been established with patient, and care team, to adhere to patient goals, identify restrictions based on behavioral status, address nutrition, and determine allowed personal belongings, tools for hygiene and personal care. Determine level of activity including ambulation, level of supervision, visitors, and determine privileges based on behaviors and level of engagement by pt. SAFETY PLAN: 1. Will remain on suicide precautions. In Paper Clothes. 2. Will remain in room under direct supervision of one-on-one staff at all times provided by CPSO, [place], DORIAN catheter finisher and inspector. 3. May have paper cups, plates, finger foods as well as a cardboard spoon to eat meals. 4. Follow [facility] Management of the Admitted Behavioral Health Patient policy. 5. Shower permitted with escort at RN discretion. 6. No personal belongings with the exception of a baseball cap, eyeglasses, and a worry rock. 7. Visitors: Per [facility] visitor policy and at RN discretion. 8. Activities: soft cart items, music tablet, television, and other activities at RN discretion. 9. Bathroom privileges with escort in the ED, available in room without limitation on M/S. 10. Phone: May use [employer] phone at RN discretion. 11. Due to VOLUNTARY status, if patient wishes to leave [facility], staff will contact [facility] Crisis Screener ([phone]) and On-Call Oiler Bander ([phone]) as soon as possible. In the event of elopement, notify [place] [employer] ([phone]). Patient is currently voluntarily at [facility] and seeking inpatient admission when a bed becomes available. [facility] Frontline Pheresis Nurse will continue seeking placement. Please contact the Forensic Science Technician Oiler Bander ([phone]) and [facility] Pheresis Nurse ([phone]) for any needed changes in the Safety Plan. Safety plan has been provided to interdepartmental care team.
--- NOTE | 2022-02-12 15:36 | PDOC.ERCMPRO ---
- If Service Date Differs Date of service: 02/12/22 Time of Service: 15:36 Care Management Progress Note S/O: Greg is a 31 year old male who presents in the ED for worsening suicidal ideation, anxiety, and paranoia. He was seen in the ED on 02/10/22 for anxiety and panic attacks and after meeting with [facility], he was discharged home on a safety plan. Since then, his symptoms have worsened considerably and he now comes to [facility] seeking a voluntary inpatient psychiatric hospitalization. Greg is sitting on the side of the bed when CM comes to meet with him. He is pleasant, calm and cooperative. He shares he has never been psychiatrically hospitalized, so CM discusses the process with him and answers questions. A: Greg presents in the ED on 02/12/22 seeking a voluntary psych hospitalization. P: Greg meets with Argenis, [facility] crisis screener, for an evaluation. Per [facility], he meets criteria for a voluntary placement. Referrals are faxed to [facility], [facility], [facility], and [facility], for review. Greg will remain at [facility] and will be reassessed by [facility] daily until a placement can be secured for him. CM will continue to follow. - Status Status: Voluntary - Reason for Wait Reason for Wait: Inpatient Admission
[2022-02-12] MEDS: Nicotine 2 MG GUM CH (17:10)
--- NOTE | 2022-02-12 19:56 | W.EDPROG ---
Date of service: 02/12/22 Time of Service: 22:45 Medical Decision Making Patient has been calm and cooperative throughout the shift, he asked for a piece of Nicorette gum and nicotine patch which were placed Mental health indicates that patient will not be placed evening Patient will remain in the emergency department under voluntary status at this time with suicidal ideation, anxiety, depression, medically cleared by previous provider, Noble Mojica, placed in documentation Medical Records Medical records reviewed: Yes I reviewed the patient's medical records. Lab Data Lab results reviewed: Yes I reviewed the patient's lab results. Sign Out Sign Out Data: Sign Out Comment: Depression, SI, paranoia. Medically cleared and has been cooperative. COVID-negative. Currently seeking voluntary placement Last updated by Noble Mojica PA at 02/12/22 15:16 Discharge Plan Disposition Patient Disposition: [facility] INPATIENT Condition: Stable Discharge Details Clinical Impression: Depression with suicidal ideation, Paranoia Primary Care Provider: Chalo Guerin ED Provider: Raegan Méndez Home Meds and New Rx's Prescriptions: No Action venlafaxine [Effexor XR] 150 mg Capsule,Extended Release 24hr 75 mg PO DAILY bupropion HCl [Wellbutrin XL] 150 mg Tablet Extended Release 24 Hr 150 mg PO DAILY lorazepam [Ativan] 1 mg tablet 1 mg PO TID PRNQty: 7 0RF
--- NOTE | 2022-02-12 22:53 | W.PM.HP.N ---
Date of service: 02/12/22 Time of Service: 22:53 Assessment and Plan Assessment and plan (1) Depression with suicidal ideation: Start date: 02/12/22 Status: Acute Assessment and plan: This is a 31-year-old gentleman with 5-year history of worsening depression with panic who is having increasing suicidal ideation pending placement voluntarily to inpatient psychiatric care. If he attempts to leave AMA he may be an voluntary status according to [facility]. He is cooperative thus far. He is medically cleared for this placement. Suicide precaution with sitter and usual supervision as inpatient. He is a full code. (2) Panic attack: Status: Chronic Assessment and plan: With associated panic symptoms and panic attack not enabling patient to continue work at this time. Ativan as needed temporarily with long-term treatment to be determined by psychiatry. Patient is awaiting voluntary inpatient psychiatric care. 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 He has a 5-year history of having depression with panic and anxiety and recently has had increased anxiety with suicidal ideation of driving his car into a tree or pole. He was concerned about his thoughts and reported to the ED for evaluation on the day of admission after outpatient evaluation 3 days prior with awaiting bed placement which had occurred. He is being followed by [facility] and voluntarily is being admitted on suicide precaution pending placement to inpatient psychiatric unit for adjustment of medical therapy after reevaluation of care. He has no other new complaints. He does smoke tobacco and is on nicotine patch with nicotine gum which is helping his anxiety. Is receiving Ativan for anxiety recently and this will be continued while in the hospital and being supervised. Has been medically cleared in the ED for placement to inpatient psychiatric care. Review of Systems Narrative: 13 point review of systems otherwise unrevealing or stable. Patient is thin but has not been weight. [facility] All Active Problems (Updated 02/13/22 @ 13:03 by Jaswant Perez) Atypical chest pain (Acute) Chest pain (Acute) Anxiety (Chronic) Panic attack (Chronic) Depression with suicidal ideation (Acute) Paranoia (Acute) Social History Smoking/Tobacco Use Status: Current every day Tobacco Type: cigarettes Smoking risk assessment performed?: Yes Alcohol Intake: never Drug use: Current Sobriety Substance use type: does not use Details: Just stopped smoking marijuana two weeks ago Do you feel safe at home: Yes Do you feel safe in your relationship?: Yes Meds Allergies and Home Medications Allergies Allergy/AdvReac Type Severity Reaction Status Date / Time No Known Allergies Allergy Unverified 02/12/22 12:02 Home Medications Medication Instructions Recorded Confirmed Type bupropion HCl 150 mg 24 hr tablet, 150 mg PO DAILY 12/30/21 02/12/22 History extended release (Wellbutrin XL) venlafaxine 150 mg 75 mg PO DAILY 12/30/21 02/12/22 History capsule,extended release 24 hr (Effexor XR) lorazepam 1 mg tablet (Ativan) 1 mg PO TID PRN #7 tabs 01/24/22 02/12/22 Rx Exam Narrative Exam Narrative: General: Patient appears appropriate for age, moderate distress with anxious affect and flattened appearance with good eye contact. He is alert and oriented x3. He is soft-spoken. HEENT: Normocephalic, disheveled with unkempt hair, eyes with pupils equal and reactive to light symmetrically, extraocular movement intact and sclera anicteric. Oropharynx with dry mucosa and fair dentition. Neck: Supple without JVD. Back: Stooped posture without CVA tenderness. Lungs: Clear to auscultation and percussion with occasional rhonchi clearing with cough. Heart: Regular rate and rhythm with no murmurs gallops appreciated. Abdomen: Normal contour, soft and nontender to palpation with no palpable hepatosplenomegaly. Bowel sounds positive all quadrants. Genitalia/rectal: Exam deferred. Extremity: Without clubbing, cyanosis or edema. Peripheral pulses intact. Neuro: Cranial nerves II to XII grossly intact, no focal motor deficits. Skin: Normal color, warm and dry. Psych: Flattened affect with depressed mood and slowed mentation. No abnormal thought processes. Patient appears slightly anxious. Remote and recent memory grossly intact. Psych: Flat affect with depressed mood low mentation. No clinical). Patient frequently. Remote and recent memory grossly intact. Results Labs Labs: Laboratory Results - last 24 hr 02/12/22 12:35 COVID-19 Source Nasal/Nares SARS-CoV-2 (PCR) Negative Last Vital Signs Temp 37.0 C 02/12/22 13:31 Pulse 83 02/12/22 13:31 Resp 19 02/12/22 13:31 BP 142/94 H 02/12/22 13:31 Pulse Ox 97 02/12/22 13:31
[2022-02-13 00:22] VITALS: BP 126/85; PULSE 65; RESP 16; TEMP 36.6; O2SAT 98
[2022-02-13 00:29] VITALS: BP 126/85; PULSE 65; RESP 16; TEMP 36.6; O2SAT 98
[2022-02-13] MEDS: Nicotine 4 MG GUM CH ×3 (00:39→09:20)
[2022-02-13 07:31] VITALS: BP 136/88; PULSE 69; RESP 16; TEMP 36.6; O2SAT 99
[2022-02-13] MEDS: Venlafaxine 75 MG CAPCR PO (08:07)
[2022-02-13] MEDS: buPROPion-XL 150 MG TABCR PO (08:08)
--- NOTE | 2022-02-13 09:51 | DSE_ITS ---
DS: Diagnosis Discharge Diagnosis (1) Depression with suicidal ideation: Status: Acute (2) Panic attack: Status: Chronic Discharge Plan Disposition Patient Disposition: [facility] Condition: Stable Discharge Details Reason For Visit: Depression with Suicidal Ideation,Panic Attacks Admit Date/Time: 02/12/22 22:56 Admit Provider: Jaswant Perez Attending Provider: Jaswant Perez Primary Care Provider: Chalo Guerin Hospital Course Hospital Course: 31-year-old male patient with past medical history of anxiety, panic attacks, awaiting placement to a care bed after an evaluation on Thursday presents for worsening symptoms and now with vague SI, thinking of driving a car into a telephone pole.? Using the smart medical clearance no laboratory values are required.? COVID 19 PCR negative.? Denies recent illness or trauma.? Seen by mental health for evaluation. Agreeable to admission to [facility]. There are no behavioral concerns. discussed with Dr Galindo Provider to Provider report to Aggie Ochoa APRN @ [facility] at 0945 am today. Home Meds and New Rx's Prescriptions: Continued venlafaxine [Effexor XR] 150 mg Capsule,Extended Release 24hr 75 mg PO DAILY bupropion HCl [Wellbutrin XL] 150 mg Tablet Extended Release 24 Hr 150 mg PO DAILY lorazepam [Ativan] 1 mg tablet 1 mg PO TID PRNQty: 7 0RF Discharge Instructions Referrals: Chalo Guerin [Primary Care Provider] - Activity:: Activity as Tolerated Equipment/Supplies:: No Equipment Needed Diet:: As Tolerated Discharge Orders Discharge Orders: Discharge Order (Routine); Ordered 02/13/22 Ordered By: Martine Davis Discharge Data Discharge Date/Time-TO BE ENTERED AT DEPARTURE: 02/13/22 16:31 DS: Summary Time Spent with Patient providing and/or coordinating discharge services: Less than 30 minutes Status at Discharge Functional status at discharge: independent ambulation Overall status at discharge: patient is progressing back to baseline Mental Status: mental status grossly normal Speech and Movement: speech and movement normal Mood: congruent mood Affect: normal affect Exam Narrative Exam Narrative: General: Patient appears appropriate for age, He has good eye contact. He is alert and oriented x3. He is soft-spoken. HEENT: Normocephalic, disheveled with unkempt hair, eyes with pupils equal and reactive to light symmetrically, extraocular movement intact and sclera anicteric. Oropharynx with dry mucosa and fair dentition. Neck: Supple without JVD. Back: Stooped posture without CVA tenderness. Lungs: Clear to auscultation and percussion with occasional rhonchi clearing with cough. Heart: Regular rate and rhythm with no murmurs gallops appreciated. Abdomen: Normal contour, soft and nontender to palpation with no palpable hepatosplenomegaly. Bowel sounds positive all quadrants. Genitalia/rectal: Exam deferred. Extremity: Without clubbing, cyanosis or edema. Peripheral pulses intact. Neuro: Cranial nerves II to XII grossly intact, no focal motor deficits. Skin: Normal color, warm and dry. Psych: Flattened affect with depressed mood and slowed mentation. No abnormal thought processes. Patient appears slightly anxious. Remote and recent memory grossly intact. Psych: Flat affect with depressed mood low mentation. Remote and recent memory grossly intact. Psych Mental Status: mental status grossly normal Speech and Movement: speech and movement normal Mood: congruent mood Affect: normal affect DS: Data Vitals/I&O Vitals and I&O: Vital Signs Temperature 36.6 C 02/13/22 07:31 Temperature Source Tympanic 02/13/22 07:31 Pulse 69 02/13/22 07:31 Pulse Rhythm Regular 02/13/22 00:22 Respiratory Rate 16 02/13/22 07:31 Respiratory Effort 02/13/22 00:22 Respiratory Depth Normal 02/13/22 00:22 Respiratory Pattern Normal 02/13/22 00:22 Blood Pressure 136/88 02/13/22 07:31 Blood Pressure Position Sitting 02/12/22 11:58 Pulse Oximetry 99 02/13/22 07:31 Oxygen Delivery Method Room Air 02/13/22 07:31 Oxygen Flow Rate 0 02/13/22 07:31 Pain Level 0 02/13/22 07:31 Intake & Output 02/12/22 02/12/22 02/13/22 11:59 23:59 11:59 Intake Total 400 / 400 Output Total Balance - 399 / 399 Weight 68.039 kg 68.039 kg 68.353 kg Intake: Oral 400 / 400 Output: Urine Other: Urine Color Yellow Yellow Urine Appearance Clear Clear Urine Odor None None Comment voided independently Voiding Methods Toilet Toilet # Voids 1 Data Completed and Pending Labs on day of discharge: Labs from last 24 hours 02/12/22 12:35 COVID-19 Source Nasal/Nares SARS-CoV-2 (PCR) Negative PFSH All Active Problems (Updated 02/13/22 @ 13:03 by Jaswant Perez) Atypical chest pain (Acute) Chest pain (Acute) Anxiety (Chronic) Panic attack (Chronic) Depression with suicidal ideation (Acute) Paranoia (Acute) Social History Smoking/Tobacco Use Status: Current every day Tobacco Type: cigarettes Smoking risk assessment performed?: Yes Alcohol Intake: never Drug use: Current Sobriety Substance use type: does not use Details: Just stopped smoking marijuana two weeks ago Do you feel safe at home: Yes Do you feel safe in your relationship?: Yes
--- NOTE | 2022-02-13 12:09 | NUR.NOTE ---
Nursing Note: RN to RN report given to JULIOCESAR Escalante @ [facility]. Had no further questions.
[2022-02-13] MEDS: LORazepam 1 MG TAB PO (14:03)
[2022-02-13 14:57] VITALS: BP 144/88; PULSE 74; RESP 16; TEMP 36.4; O2SAT 98
--- NOTE | 2022-02-13 19:32 | PDOC.CMDIS ---
- If Service Date Differs Date of service: 02/13/22 Time of Service: 19:32 LACE Index Scoring Tool - Questions: Length of Stay (in days): 1 Acuity (Admit via E.D.?): Yes E.D. Visits: 5 - Answers: Total Score: 8 Risk of Readmission: Low Risk Care Management Discharge Reason for Hospitalization: depression with SI, panic attacks Discharge Plan: Greg was transferred to [facility] today for inpatient psychiatric treatment. He was transported via [employer], coordianted by CM. He will follow up with his PCP and discharge plan of care. He was happy to be going to [facility]. Patient/Family Education Needs: Review discharge instructions and limitations, discussion of self care needs including ask me three. Services Needed at Discharge: Psychiatric Facility ([facility]), Transportation ([employer]) - Disposition Disposition: [place] [facility] via of: [employer]
== END 2022-02-13 16:31 | disposition short-term general hospital (02) ==
LOC: ER 23:58 → MS 23:59
PROVIDERS: Physician Assistant; Admitting Provider Family Medicine; Emergency Provider Physician Assistant; PCP Nurse Practitioner Family; Visit Provider Family Medicine
DX: F32.A Depression, unspecified (principal); R45.851 Suicidal ideations; F41.0 Panic disorder [episodic paroxysmal anxiety]; Z20.822 Contact with and (suspected) exposure to COVID-19; Z79.899 Other long term (current) drug therapy; F17.210 Nicotine dependence, cigarettes, uncomplicated; F22 Delusional disorders
CPT/HCPCS: 87635; 99285; 99217; 99219; G0378